=== PATIENT | female | born 1945 | race Hispanic/Latino ===

== ENCOUNTER → 2017-05-12 | Outpatient (CLI) | payer MEDICARE ==
[~2017-05-12] MED LIST: AMLO10TA2 PO; GLYB5TAB8 PO; LEVO100T12 PO; LISI1TAB13 PO; LOVA40TA2 PO
== END | disposition home or self-care (01) ==
LOC: RAH 09:53
PROVIDERS: ATTEND Internal Medicine
DX: Z12.31 Encounter for screening mammogram for malignant neoplasm of breast (principal)
CPT/HCPCS: 77067

== ENCOUNTER → 2017-09-27 | Outpatient (CLI) | payer MEDICARE | END | disposition home or self-care (01) | LOC: SHCH 08:55 | PROVIDERS: ATTEND Internal Medicine Cardiovascular Disease | DX: I35.0 Nonrheumatic aortic (valve) stenosis (principal) | CPT/HCPCS: 93306 ==

== ENCOUNTER → 2017-10-06 | Outpatient (CLI) | payer MEDICARE | END | disposition home or self-care (01) | LOC: SHCH 14:52 | PROVIDERS: ATTEND Internal Medicine Cardiovascular Disease | DX: I73.9 Peripheral vascular disease, unspecified (principal); I70.8 Atherosclerosis of other arteries; R09.89 Other specified symptoms and signs involving the circulatory and respiratory systems | CPT/HCPCS: 93880; 93925 ==

== ENCOUNTER 2018-01-09 07:44 | Day surgery (SDC) | payer MEDICARE ==
[2018-01-04 12:12] VITALS: BP 179/72
[2018-01-04 12:36] LABS: APPEARANCE,URINE Turbid (CLEAR); BASOPHILS % (AUTO) 0.9 % (0.0-5.0); BILIRUBIN,URINE Negative (NEGATIVE); COLOR,URINE Yellow (YELLOW); GLUCOSE, URINE (UA) Negative (NEGATIVE); HEMATOCRIT 32.5 % (36-48); KETONES,URINE Negative (NEGATIVE); LEUKOCYTE ESTERASE ,URINE Large (NEGATIVE); LYMPHOCYTES % (AUTO) 29.4 % (21.0-51.0); MEAN CORPUSCULAR HEMOGLOBIN 30.4 pg (27.0-33.0); MEAN CORPUSCULAR HGB CONC 33.9 g/dL (32.0-36.0); MEAN CORPUSCULAR VOLUME 89.6 fL (79-99); MONOCYTES % (AUTO) 6.3 % (3.0-13.0); NEUTROPHILS % (AUTO) 60.4 % (40.0-77.0); NITRATE,URINE Negative (NEGATIVE); OCCULT BLOOD,URINE Nonhemolyzed Trace (NEGATIVE); PLATELET COUNT (AUTO) 250 K/uL (130-400); PROTEIN,URINE Negative (NEGATIVE); RED BLOOD CELL COUNT(AUTO) 3.63 MIL/uL (4.00-5.50); RED CELL DISTRIBUTION WIDTH 13.8 % (11.0-15.5); UROBILINOGEN,URINE 0.2 mg/dL (0.2-1.0); WHITE BLOOD COUNT (AUTO) 7.5 K/uL (4.8-10.8)
[2018-01-04 12:43] LABS: CREATININE 1.2 mg/dL (0.5-1.5); POTASSIUM 4.3 mmol/L (3.5-5.1)
[2018-01-04 12:46] LABS: INR 0.95 (0.85-1.15); PARTIAL THROMBOPLASTIN TIME 28.1 SEC (26.3-35.5)
[2018-01-04 13:30] LABS: BACTERIA,URINE Moderate /HPF (None Seen); SQUAMOUS EPITHELIAL CELL,UR Moderate /HPF (0-2); WBC,URINE TNTC /HPF (0-1)
[~2018-01-09] VITALS: Ht 157.5 cm; Wt 90.4 kg
[2018-01-09] VITALS (10 sets, daily range): BP systolic 128–176; BP diastolic 62–76
[~2018-01-09 07:44] MED LIST changes: -AMLO10TA2 PO; +AMLO10TA6 PO; +ATOR40TA69 PO; -LISI1TAB13 PO; +LOSA100T20 PO; -LOVA40TA2 PO
[2018-01-09] MEDS ORDERED: SODIUM CHLORIDE 0.9% 1000ML 1,000 ML IV ONE ×2 (07:57→08:38)
[2018-01-09] MEDS ORDERED: SODIUM BICARB 50MEQ 50ML VIAL ONE (10:19)
[2018-01-09] MEDS ORDERED: IOHEXOL-350 50ML VIAL IV ONE ×2 (10:19)
[2018-01-09] MEDS ORDERED: NITROGLYCERIN 5 MG/ML 10 ML VIAL IV ONE (10:19)
[2018-01-09] MEDS ORDERED: LIDOCAINE HCL-MPF 2% 5ML VIAL ONE (10:19)
[2018-01-09] MEDS ORDERED: IOHEXOL 350 MG/ML 100ML INFUS..BTL IV ONE ×2 (10:19)
[2018-01-09] MEDS ORDERED: MEPERIDINE-PF 25 MG/ML SYG ONE (10:50)
[2018-01-09] MEDS ORDERED: MIDAZOLAM HCL 1 MG/ML 2ML VIAL ONE (10:50)
[2018-01-09] MEDS ORDERED: DEXTROSE 50%-WATER 50 ML DISP.SYRIN IV PRN (11:45)
[2018-01-09] MEDS ORDERED: GLUCAGON 1MG KIT 1 MG ML IM PRN (11:45)
[2018-01-09] MEDS ORDERED: SODIUM CHLORIDE 0.9% 1000ML 1,000 ML IV SCH (11:45)
[2018-01-09] MEDS ORDERED: ACETAMINOPHEN-CODEINE 300/30MG TAB PO PRN (11:45)
[2018-01-09] MEDS ORDERED: INSULIN HUMULIN R 100 UNIT/ML 3ML SQ SCH (16:30)
== END 2018-01-09 16:10 | disposition home or self-care (01) ==
LOC: SUH 07:44 → DAH 07:44 → SUH 16:10
PROVIDERS: ATTEND Internal Medicine Cardiovascular Disease
DX: I25.10 Atherosclerotic heart disease of native coronary artery without angina pectoris (principal); I35.0 Nonrheumatic aortic (valve) stenosis; I10 Essential (primary) hypertension; E03.9 Hypothyroidism, unspecified; E66.9 Obesity, unspecified; Z79.899 Other long term (current) drug therapy; Z79.84 Long term (current) use of oral hypoglycemic drugs; Z98.890 Other specified postprocedural states; Z82.49 Family history of ischemic heart disease and other diseases of the circulatory system; Z83.3 Family history of diabetes mellitus; Z80.9 Family history of malignant neoplasm, unspecified; Z90.49 Acquired absence of other specified parts of digestive tract; Z68.32 Body mass index [BMI] 32.0-32.9, adult; Z79.01 Long term (current) use of anticoagulants
CPT/HCPCS: 36415; 71045; 80048; 81001; 82948 ×2; 85025; 85610; 85730; 93005; 93460; A4606; C1760; C1769; C1893; C1894; J1644; J2175; J2250; J3490 ×3; J7030 ×2; Q9965; Q9967 ×2; 99156; 99157

== ENCOUNTER → 2019-06-05 | Outpatient (CLI) | payer MEDICARE, OTHER ==
[~2019-06-05] MED LIST changes: -AMLO10TA6 PO; +AMLO10TA7 PO; -LOSA100T20 PO; +LOSA100T58 PO
== END | disposition home or self-care (01) ==
LOC: SHCH 11:25
PROVIDERS: ATTEND Internal Medicine Cardiovascular Disease
DX: I08.0 Rheumatic disorders of both mitral and aortic valves (principal)
CPT/HCPCS: 93306; 93356

== ENCOUNTER 2020-06-06 20:41 | Inpatient (IN) | payer OTHER ==
[~2020-06-06] VITALS: Ht 152.4 cm; Wt 94.4 kg
[~2020-06-06 20:41] MED LIST changes: +AMLO-258 PO; -AMLO10TA7 PO
[2020-06-06] MEDS ORDERED: 0.9% NACL 500ML IV.SOLN 500 ML IV ONE (21:04)
[2020-06-06] MEDS ORDERED: ONDANSETRON 4MG INJ ONE ×2 (21:04→22:28)
[2020-06-06] MEDS ORDERED: 0.9%NACL 1000ML 1,000 ML IV ONE (21:10)
[2020-06-06 21:11] LABS: BASOPHILS % (AUTO) 0.4 % (0.0-5.0); HEMATOCRIT 32.4 % (36-48); LYMPHOCYTES % (AUTO) 18.7 % (21.0-51.0); MEAN CORPUSCULAR HEMOGLOBIN 28.9 pg (27.0-33.0); MEAN CORPUSCULAR HGB CONC 32.4 g/dL (32.0-36.0); MEAN CORPUSCULAR VOLUME 89.3 fL (79-99); MONOCYTES % (AUTO) 4.3 % (3.0-13.0); NEUTROPHILS % (AUTO) 74.1 % (40.0-77.0); PLATELET COUNT (AUTO) 243 K/uL (130-400); RED BLOOD CELL COUNT(AUTO) 3.63 MIL/uL (4.00-5.50); RED CELL DISTRIBUTION WIDTH 12.8 % (11.0-15.5); WHITE BLOOD COUNT (AUTO) 13.9 K/uL (4.8-10.8)
[2020-06-06 21:24] LABS: APPEARANCE,URINE Clear (CLEAR); BILIRUBIN,URINE Negative (NEGATIVE); COLOR,URINE Yellow (YELLOW); GLUCOSE, URINE (UA) Negative (NEGATIVE); KETONES,URINE Negative (NEGATIVE); LEUKOCYTE ESTERASE ,URINE Trace (NEGATIVE); NITRATE,URINE Negative (NEGATIVE); OCCULT BLOOD,URINE Small (NEGATIVE); PH,URINE 6.5 (5.0-8.0); PROTEIN,URINE POS 1+ mg/dL (NEGATIVE); UROBILINOGEN,URINE 0.2 mg/dL (0.2-1.0)
[2020-06-06 21:27] LABS: INR 0.96 (0.85-1.15); PROTHROMBIN TIME 10.5 SEC (9.6-11.6)
[2020-06-06 21:28] LABS: PARTIAL THROMBOPLASTIN TIME 23.5 SEC (26.3-35.5)
[2020-06-06 21:51] LABS: CREATININE 1.1 mg/dL (0.5-1.5); POTASSIUM 4.1 mmol/L (3.5-5.1)
[2020-06-06 21:56] LABS: BILIRUBIN,TOTAL 0.5 mg/dL (0.2-1.0); TOTAL PROTEIN, SERUM 7.9 g/dL (6.0-8.3)
[2020-06-06 21:59] LABS: BACTERIA,URINE Moderate /HPF (None Seen); MUCUS,URINE Few LPF (None Seen); SQUAMOUS EPITHELIAL CELL,UR 0-2 /HPF (0-2)
[2020-06-06] MEDS ORDERED: MORPHINE 4 MG SYG ONE (22:28)
[2020-06-07] VITALS (14 sets, daily range): BP systolic 82–179; BP diastolic 40–74
[2020-06-07] MEDS ORDERED: CEFTRIAXONE 1G VIAL ONE (00:05)
[2020-06-07 00:30] LABS: CRP QUANTITATIVE 4.6 mg/L (0.00-9.0); MAGNESIUM 1.4 mg/dL (1.80-2.40); PHOSPHORUS 3.7 mg/dL (2.5-4.9); THYROID STIMULATING HORMONE 0.47 uIU/mL (0.36-3.74)
[2020-06-07] MEDS ORDERED: AMLODIPINE 5 MG TAB ONE (08:30)
[2020-06-07] MEDS ORDERED: LOSARTAN 50 MG TABLET ONE (08:30)
[2020-06-07] MEDS ORDERED: FAMOTIDINE 20MG VIAL IV ONE (08:30)
[2020-06-07] MEDS: FAMOTIDINE 20MG VIAL IV SCH ×2 (09:00→21:00)
[2020-06-07] MEDS: LOSARTAN 100 MG TABLET PO SCH (09:00)
[2020-06-07] MEDS: AMLODIPINE 5 MG TAB PO SCH (09:00)
[2020-06-07] MEDS ORDERED: BRIM5DRO OU (10:30)
[2020-06-07] MEDS ORDERED: LATA2.5D14 OU (10:30)
[2020-06-07] MEDS ORDERED: ONDANSETRON 4MG INJ IVP PRN (10:45)
[2020-06-07] MEDS ORDERED: MORPHINE 2 MG SYG IVP PRN (10:45)
[2020-06-07] MEDS: HEPARIN 5,000 UNIT VIAL SQ SCH ×2 (10:52→21:00)
[2020-06-07] MEDS ORDERED: MAGNESIUM 2GM PREMIX 50ML 50 ML IV SCH (16:45)
[2020-06-07] MEDS ORDERED: 0.9%NACL 1000ML 1,000 ML IV ONE (20:03)
[2020-06-07] MEDS ORDERED: CEFAZOLIN SODIUM 1 GM VIAL ONE (20:04)
[2020-06-07] MEDS ORDERED: KETOROLAC 30MG VIAL (30MG/ML) ONE (20:10)
[2020-06-07] MEDS ORDERED: BUPIVACAINE/PF 0.5% 10ML VIAL ONE (20:12)
[2020-06-07] MEDS ORDERED: LIDOCAINE PF 100MG/5ML (2%) SYRINGE 5ML ONE (20:14)
[2020-06-07] MEDS ORDERED: FENTANYL CITRATE PF 50 MCG/1 ML 2ML VIAL ONE (20:14)
[2020-06-07] MEDS ORDERED: PROPOFOL 10 MG/ML 20ML VIAL IV ONE (20:14)
[2020-06-07] MEDS ORDERED: SUCCINYLCHOLINE CHLORIDE 20 MG/ML 10 ML VIAL ONE (20:14)
[2020-06-07] MEDS ORDERED: ROCURONIUM 10MG/1ML SYR 10 MG/ML ML ONE (20:39)
[2020-06-07] MEDS ORDERED: EPHEDRINE SULFATE 50 MG/ML AMPULE ONE (20:49)
[2020-06-07] MEDS ORDERED: GLYCOPYRROLATE 1 MG/5 ML SYRINGE ONE (21:46)
[2020-06-07] MEDS ORDERED: ONDANSETRON 4MG INJ ONE (21:47)
[2020-06-07] MEDS ORDERED: NEOSTIGMINE 5MG/5ML SYR IV ONE (21:47)
[2020-06-08] VITALS (18 sets, daily range): BP systolic 94–134; BP diastolic 47–63
[2020-06-08 04:25] LABS: HEMATOCRIT 24.3 % (36-48); MEAN CORPUSCULAR HEMOGLOBIN 29.2 pg (27.0-33.0); MEAN CORPUSCULAR HGB CONC 31.7 g/dL (32.0-36.0); RED BLOOD CELL COUNT(AUTO) 2.64 MIL/uL (4.00-5.50); RED CELL DISTRIBUTION WIDTH 13.1 % (11.0-15.5); WHITE BLOOD COUNT (AUTO) 14.9 K/uL (4.8-10.8)
[2020-06-08] MEDS ORDERED: OXYCODONE/ACETAMIN 5/325MG TAB PO PRN (04:30)
[2020-06-08] MEDS ORDERED: KETOROLAC 15MG/ML VIAL (15MG/ML) IV PRN (04:30)
[2020-06-08 04:37] LABS: CREATININE 1.5 mg/dL (0.5-1.5); MAGNESIUM 1.7 mg/dL (1.80-2.40); POTASSIUM 4.3 mmol/L (3.5-5.1)
[2020-06-08] MEDS: CEFTRIAXONE 1G VIAL IV SCH ×2 (07:31→23:01)
[2020-06-08] MEDS: LACTATED RINGERS 1000ML 1,000 ML IV SCH ×3 (07:31→23:02)
[2020-06-08] MEDS: CEFAZOLIN SODIUM 1 GM VIAL IVP SCH ×3 (07:31→23:00)
[2020-06-08] MEDS: LOSARTAN 100 MG TABLET PO SCH (08:02)
[2020-06-08] MEDS: OXYCODONE/ACETAMIN 5/325MG TAB PO PRN (08:02)
[2020-06-08] MEDS: AMLODIPINE 5 MG TAB PO SCH (08:03)
[2020-06-08] MEDS: APIXABAN 2.5 MG TABLET PO SCH ×2 (08:03→23:02)
[2020-06-08] MEDS: DOCUSATE SODIUM 100 MG CAP PO SCH ×2 (08:03→23:02)
[2020-06-08] MEDS: FAMOTIDINE 20MG VIAL IV SCH ×2 (08:04→23:02)
[2020-06-08] MEDS: HEPARIN 5,000 UNIT VIAL SQ SCH ×2 (09:00→23:18)
[2020-06-08] MEDS ORDERED: INSULIN HUMULIN R 100 UNIT/ML 3ML SQ SCH (16:30)
[2020-06-08] MEDS: INSULIN HUMULIN R 100 UNIT/ML 3ML SQ SCH (21:00)
[2020-06-09] VITALS (9 sets, daily range): BP systolic 101–155; BP diastolic 39–72
[2020-06-09] MEDS: CEFAZOLIN SODIUM 1 GM VIAL IVP SCH ×3 (04:20→20:38)
[2020-06-09 05:39] LABS: MEAN CORPUSCULAR HEMOGLOBIN 29.4 pg (27.0-33.0); MEAN CORPUSCULAR HGB CONC 32.3 g/dL (32.0-36.0); MEAN CORPUSCULAR VOLUME 91.2 fL (79-99); PLATELET COUNT (AUTO) 149 K/uL (130-400); RED BLOOD CELL COUNT(AUTO) 2.04 MIL/uL (4.00-5.50); RED CELL DISTRIBUTION WIDTH 13.2 % (11.0-15.5); WHITE BLOOD COUNT (AUTO) 8.6 K/uL (4.8-10.8)
[2020-06-09 06:13] LABS: ALBUMIN 2.5 g/dL (3.5-5.0); BILIRUBIN,TOTAL 0.4 mg/dL (0.2-1.0); CREATININE 2.3 mg/dL (0.5-1.5); POTASSIUM 3.9 mmol/L (3.5-5.1); TOTAL PROTEIN, SERUM 5.7 g/dL (6.0-8.3)
[2020-06-09 07:04] LABS: HEMATOCRIT 18.6 % (36-48)
[2020-06-09] MEDS: INSULIN HUMULIN R 100 UNIT/ML 3ML SQ SCH ×4 (07:30→21:46)
[2020-06-09 08:14] LABS: MAGNESIUM 1.9 mg/dL (1.80-2.40)
[2020-06-09] MEDS: DOCUSATE SODIUM 100 MG CAP PO SCH ×2 (08:25→20:39)
[2020-06-09] MEDS: FAMOTIDINE 20MG VIAL IV SCH ×2 (08:26→20:39)
[2020-06-09] MEDS: LOSARTAN 100 MG TABLET PO SCH (08:26)
[2020-06-09] MEDS: AMLODIPINE 5 MG TAB PO SCH (08:26)
[2020-06-09 08:30] LABS: HEMATOCRIT 18.5 % (36-48)
[2020-06-09] MEDS: OXYCODONE/ACETAMIN 5/325MG TAB PO PRN (08:36)
[2020-06-09] MEDS: LACTATED RINGERS 1000ML 1,000 ML IV SCH ×2 (10:30→20:30)
[2020-06-09] MEDS: APIXABAN 2.5 MG TABLET PO SCH ×2 (13:30→20:46)
[2020-06-09 20:09] LABS: BASOPHILS % (AUTO) 0.5 % (0.0-5.0); EOSINOPHILS % (AUTO) 2.1 % (0.0-8.0); LYMPHOCYTES % (AUTO) 11.1 % (21.0-51.0); MEAN CORPUSCULAR HEMOGLOBIN 29.8 pg (27.0-33.0); MEAN CORPUSCULAR VOLUME 90.2 fL (79-99); MONOCYTES % (AUTO) 6.5 % (3.0-13.0); NEUTROPHILS % (AUTO) 79.5 % (40.0-77.0); PLATELET COUNT (AUTO) 145 K/uL (130-400); RED BLOOD CELL COUNT(AUTO) 2.25 MIL/uL (4.00-5.50); RED CELL DISTRIBUTION WIDTH 12.7 % (11.0-15.5); WHITE BLOOD COUNT (AUTO) 7.7 K/uL (4.8-10.8)
[2020-06-09 20:15] LABS: HEMATOCRIT 20.3 % (36-48)
[2020-06-09] MEDS: CEFTRIAXONE 1G VIAL IV SCH (23:53)
[2020-06-10] VITALS (7 sets, daily range): BP systolic 117–167; BP diastolic 58–75
[2020-06-10] MEDS: OXYCODONE/ACETAMIN 5/325MG TAB PO PRN (00:23)
[2020-06-10] MEDS: CEFAZOLIN SODIUM 1 GM VIAL IVP SCH ×2 (04:22→12:41)
[2020-06-10] MEDS: LACTATED RINGERS 1000ML 1,000 ML IV SCH ×3 (04:25→16:36)
[2020-06-10 06:09] LABS: HEMATOCRIT 21.9 % (36-48); MEAN CORPUSCULAR HEMOGLOBIN 29.6 pg (27.0-33.0); MEAN CORPUSCULAR HGB CONC 33.3 g/dL (32.0-36.0); MEAN CORPUSCULAR VOLUME 88.7 fL (79-99); RED BLOOD CELL COUNT(AUTO) 2.47 MIL/uL (4.00-5.50); WHITE BLOOD COUNT (AUTO) 7.4 K/uL (4.8-10.8)
[2020-06-10 06:29] LABS: BILIRUBIN,TOTAL 0.5 mg/dL (0.2-1.0); CREATININE 1.5 mg/dL (0.5-1.5); POTASSIUM 3.8 mmol/L (3.5-5.1); TOTAL PROTEIN, SERUM 5.3 g/dL (6.0-8.3)
[2020-06-10] MEDS: INSULIN HUMULIN R 100 UNIT/ML 3ML SQ SCH ×4 (06:42→20:33)
[2020-06-10] MEDS: FAMOTIDINE 20MG VIAL IV SCH ×2 (09:58→20:33)
[2020-06-10] MEDS: APIXABAN 2.5 MG TABLET PO SCH ×2 (09:58→20:33)
[2020-06-10] MEDS: AMLODIPINE 5 MG TAB PO SCH (09:59)
[2020-06-10] MEDS: DOCUSATE SODIUM 100 MG CAP PO SCH ×2 (09:59→20:33)
[2020-06-10] MEDS: LOSARTAN 100 MG TABLET PO SCH (09:59)
[2020-06-10] MEDS ORDERED: ACETAMINOPHEN 325 MG TAB PO SCH (10:30)
[2020-06-10] MEDS ORDERED: PHARMACY COMMUNICATION MISC SCH (17:00)
[2020-06-10] MEDS: MEROPENEM 500 MG VIAL IVP SCH ×2 (17:23→23:40)
[2020-06-11] MEDS: OXYCODONE/ACETAMIN 5/325MG TAB PO PRN (01:21)
[2020-06-11] MEDS: LACTATED RINGERS 1000ML 1,000 ML IV SCH ×3 (01:52→21:54)
[2020-06-11 04:02] VITALS: BP 114/55
[2020-06-11 05:21] LABS: MEAN CORPUSCULAR HEMOGLOBIN 29.7 pg (27.0-33.0); MEAN CORPUSCULAR HGB CONC 33.3 g/dL (32.0-36.0); RED BLOOD CELL COUNT(AUTO) 2.36 MIL/uL (4.00-5.50); RED CELL DISTRIBUTION WIDTH 13.2 % (11.0-15.5); WHITE BLOOD COUNT (AUTO) 7.7 K/uL (4.8-10.8)
[2020-06-11 05:25] LABS: ALBUMIN 1.9 g/dL (3.5-5.0); BILIRUBIN,TOTAL 0.8 mg/dL (0.2-1.0); CREATININE 1.1 mg/dL (0.5-1.5); TOTAL PROTEIN, SERUM 5.3 g/dL (6.0-8.3)
[2020-06-11] MEDS: INSULIN HUMULIN R 100 UNIT/ML 3ML SQ SCH ×4 (05:53→20:52)
[2020-06-11 07:00] VITALS: BP 131/54
[2020-06-11] MEDS: MEROPENEM 500 MG VIAL IVP SCH ×3 (08:44→23:45)
[2020-06-11] MEDS ORDERED: LACTULOSE 20 GM/30 ML UDCUP PO SCH (09:15)
[2020-06-11] MEDS: LACTULOSE 20 GM/30 ML UDCUP PO SCH ×2 (10:15→15:00)
[2020-06-11] MEDS ORDERED: LACTULOSE 20 GM/30 ML UDCUP ONE (10:22)
[2020-06-11] MEDS: APIXABAN 2.5 MG TABLET PO SCH ×2 (10:27→20:43)
[2020-06-11] MEDS: DOCUSATE SODIUM 100 MG CAP PO SCH ×2 (10:28→20:43)
[2020-06-11] MEDS: LOSARTAN 100 MG TABLET PO SCH (10:28)
[2020-06-11] MEDS: AMLODIPINE 5 MG TAB PO SCH (10:28)
[2020-06-11] MEDS: FAMOTIDINE 20MG TAB PO SCH ×2 (10:28→20:43)
[2020-06-11 11:30] VITALS: BP 133/49
[2020-06-11] MEDS: OXYBUTYNIN CHLORIDE 5 MG TABLET PO SCH ×2 (12:18→20:43)
[2020-06-11] MEDS: FERROUS SULFATE 325 MG TABLET.DR PO SCH (12:18)
[2020-06-11] MEDS ORDERED: KETOROLAC 30MG VIAL (30MG/ML) ONE (12:32)
[2020-06-11] MEDS ORDERED: KETOROLAC 30MG VIAL (30MG/ML) IV PRN (12:45)
[2020-06-11 13:12] LABS: HEMATOCRIT 24.7 % (36-48)
[2020-06-11 15:30] VITALS: BP 161/67
[2020-06-11] MEDS ORDERED: LACTULOSE 20 GM/30 ML UDCUP PO PRN (18:45)
[2020-06-11 20:00] VITALS: BP 151/81
[2020-06-11 23:59] VITALS: BP 134/60
[2020-06-12 04:00] VITALS: BP 134/68
[2020-06-12 05:36] LABS: ALBUMIN 1.9 g/dL (3.5-5.0); BILIRUBIN,TOTAL 1.1 mg/dL (0.2-1.0); CREATININE 0.9 mg/dL (0.5-1.5); POTASSIUM 3.8 mmol/L (3.5-5.1); TOTAL PROTEIN, SERUM 5.2 g/dL (6.0-8.3)
[2020-06-12] MEDS: LACTATED RINGERS 1000ML 1,000 ML IV SCH (06:06)
[2020-06-12] MEDS: INSULIN HUMULIN R 100 UNIT/ML 3ML SQ SCH ×3 (06:32→16:30)
[2020-06-12 08:00] VITALS: BP 147/60
[2020-06-12] MEDS: DOCUSATE SODIUM 100 MG CAP PO SCH (09:00)
[2020-06-12] MEDS: MEROPENEM 500 MG VIAL IVP SCH (09:13)
[2020-06-12] MEDS: LOSARTAN 100 MG TABLET PO SCH (09:14)
[2020-06-12] MEDS: APIXABAN 2.5 MG TABLET PO SCH (09:15)
[2020-06-12] MEDS: FERROUS SULFATE 325 MG TABLET.DR PO SCH (09:15)
[2020-06-12] MEDS: AMLODIPINE 5 MG TAB PO SCH (09:15)
[2020-06-12] MEDS: FAMOTIDINE 20MG TAB PO SCH (09:15)
[2020-06-12] MEDS ORDERED: PSYLLIUM SEED 1 EACH PACKET PO SCH (12:00)
[2020-06-12 12:04] VITALS: BP 142/67
[2020-06-12 16:00] VITALS: BP 159/72
== END 2020-06-12 18:45 | DRG 481 ==
LOC: EDH 20:41 → EDHIP 23:53 → 3AH 06-07 09:19 → 3CH 06-07 20:25 → UNDODISIN 06-12 18:45
PROVIDERS: ADMIT Family Medicine; ATTEND Family Medicine
PROC: 0QS706Z Reposition Left Upper Femur with Intramedullary Internal Fixation Device, Open Approach (ICD-10-PCS; principal; 2020-06-07 20:20)
PROC: 30233N1 Transfusion of Nonautologous Red Blood Cells into Peripheral Vein, Percutaneous Approach (ICD-10-PCS; 2020-06-09)
DX: S72.102A Unspecified trochanteric fracture of left femur, initial encounter for closed fracture (principal); N39.0 Urinary tract infection, site not specified; Z68.41 Body mass index [BMI] 40.0-44.9, adult; E46 Unspecified protein-calorie malnutrition; N17.9 Acute kidney failure, unspecified; D62 Acute posthemorrhagic anemia; K59.00 Constipation, unspecified; R33.9 Retention of urine, unspecified; E77.8 Other disorders of glycoprotein metabolism; N99.0 Postprocedural (acute) (chronic) kidney failure; I10 Essential (primary) hypertension; E03.9 Hypothyroidism, unspecified; M71.21 Synovial cyst of popliteal space [Baker], right knee; Z20.822 Contact with and (suspected) exposure to COVID-19; B96.20 Unspecified Escherichia coli [E. coli] as the cause of diseases classified elsewhere; I35.2 Nonrheumatic aortic (valve) stenosis with insufficiency; I25.10 Atherosclerotic heart disease of native coronary artery without angina pectoris; R79.89 Other specified abnormal findings of blood chemistry; E78.5 Hyperlipidemia, unspecified; E66.9 Obesity, unspecified; E83.42 Hypomagnesemia; Z60.2 Problems related to living alone; E11.51 Type 2 diabetes mellitus with diabetic peripheral angiopathy without gangrene; W18.30XA Fall on same level, unspecified, initial encounter; Z95.2 Presence of prosthetic heart valve; Z90.49 Acquired absence of other specified parts of digestive tract; Z83.3 Family history of diabetes mellitus; Z82.49 Family history of ischemic heart disease and other diseases of the circulatory system; Z82.3 Family history of stroke; Z82.5 Family history of asthma and other chronic lower respiratory diseases; Z82.0 Family history of epilepsy and other diseases of the nervous system; Z79.899 Other long term (current) drug therapy; Z79.84 Long term (current) use of oral hypoglycemic drugs; Z98.41 Cataract extraction status, right eye; I25.2 Old myocardial infarction; Y93.89 Activity, other specified; Y92.89 Other specified places as the place of occurrence of the external cause; Y99.8 Other external cause status
CPT/HCPCS: 36415; 36430; 70450; 71045; 73502; 73552; 73562; 74018; 78582; 80048; 80053; 81001; 82948; 83735; 83880; 84100; 84132; 84443; 84484; 85014; 85018; 85025; 85027; 85378; 85610; 85730; 86140; 86850; 86900; 86901; 86922; 86923; 87077; 87088; 87186; 87426; 93005; 93970; 97039; A9540; A9558; G0378; J0330; J0690; J0696; J1644; J1815; J1885; J2001; J2185; J2270; J2405; J2704; J2710; J3010; J3475; J3490; J7030; J7040; J7120; P9016; U0003

== ENCOUNTER → 2021-05-11 | Outpatient (CLI) | payer OTHER ==
[~2021-05-11] MED LIST changes: +BRIM5DRO OU; +LATA2.5D14 OU
== END | disposition home or self-care (01) ==
LOC: SHCH 12:12
PROVIDERS: ATTEND Internal Medicine Cardiovascular Disease
DX: I08.0 Rheumatic disorders of both mitral and aortic valves (principal); I25.10 Atherosclerotic heart disease of native coronary artery without angina pectoris; I11.9 Hypertensive heart disease without heart failure
CPT/HCPCS: 93306

== ENCOUNTER → 2021-12-04 | Emergency (ER) | payer OTHER ==
[~2021-12-04] VITALS: Ht 160 cm; Wt 68.9 kg
[~2021-12-04] MED LIST changes: +HYDR-4153 PO; +NIFEDIPINE 10 MG CAP PO ONE
[2021-12-04 17:25] LABS: BASOPHILS % (AUTO) 0.8 % (0.0-5.0); EOSINOPHILS % (AUTO) 2.9 % (0.0-8.0); HEMATOCRIT 29.7 % (36-48); LYMPHOCYTES % (AUTO) 28.1 % (21.0-51.0); MEAN CORPUSCULAR VOLUME 90.8 fL (79-99); PLATELET COUNT (AUTO) 188 K/uL (130-400); RED BLOOD CELL COUNT(AUTO) 3.27 MIL/uL (4.00-5.50); RED CELL DISTRIBUTION WIDTH 13.9 % (11.0-15.5); WHITE BLOOD COUNT (AUTO) 6.2 K/uL (4.8-10.8)
[2021-12-04 17:35] LABS: CREATININE 1.2 mg/dL (0.5-1.5)
[2021-12-04 17:44] LABS: ALBUMIN 3.6 g/dL (3.5-5.0); TOTAL PROTEIN, SERUM 7.7 g/dL (6.0-8.3)
[2021-12-04 18:37] VITALS: BP 159/67
== END | disposition home or self-care (01) ==
LOC: EDH 17:04
DX: I10 Essential (primary) hypertension (principal); D64.9 Anemia, unspecified; E11.9 Type 2 diabetes mellitus without complications; E78.00 Pure hypercholesterolemia, unspecified; Z79.84 Long term (current) use of oral hypoglycemic drugs; Z90.49 Acquired absence of other specified parts of digestive tract; Z95.2 Presence of prosthetic heart valve; E66.9 Obesity, unspecified; Z68.26 Body mass index [BMI] 26.0-26.9, adult
CPT/HCPCS: 36415; 71045; 80053; 84484; 85025; 93005

== ENCOUNTER → 2022-04-20 | Outpatient (CLI) | payer OTHER, MEDICARE ==
[~2022-04-20] MED LIST changes: +ALEN70TA80 PO; -AMLO-258 PO; +ATOR10 PO; -ATOR40TA69 PO; -BRIM5DRO OU; +BUSP7.5T7 PO; +DOXA1TAB2 PO; +FERR-72 PO; -GLYB5TAB8 PO; -LATA2.5D14 OU; +LIDOCAINE HCL 4% LTA SOL 4 ML VIAL TP ONE; -LOSA100T58 PO; +NIFE-39 PO; -NIFEDIPINE 10 MG CAP PO ONE; +OMEP20CA12 PO; +PANT40TA54 PO; +SERT-439 PO; +VALS320T16 PO
== END | disposition home or self-care (01) ==
LOC: WHH 09:56
PROVIDERS: ATTEND Podiatrist Foot & Ankle Surgery
DX: T25.321A Burn of third degree of right foot, initial encounter (principal); T31.0 Burns involving less than 10% of body surface; E11.51 Type 2 diabetes mellitus with diabetic peripheral angiopathy without gangrene; I10 Essential (primary) hypertension; E03.9 Hypothyroidism, unspecified; E78.5 Hyperlipidemia, unspecified; I25.10 Atherosclerotic heart disease of native coronary artery without angina pectoris; E66.9 Obesity, unspecified; F41.9 Anxiety disorder, unspecified; F32.A Depression, unspecified; M19.90 Unspecified osteoarthritis, unspecified site; M81.0 Age-related osteoporosis without current pathological fracture; Z68.24 Body mass index [BMI] 24.0-24.9, adult; Z79.899 Other long term (current) drug therapy; Z90.49 Acquired absence of other specified parts of digestive tract; X10.2XXA Contact with fats and cooking oils, initial encounter; Y93.89 Activity, other specified; Y92.89 Other specified places as the place of occurrence of the external cause; Y99.8 Other external cause status
CPT/HCPCS: 16025; A4450; 16020

== ENCOUNTER → 2022-05-04 | Outpatient (CLI) | payer OTHER, MEDICARE | END | disposition home or self-care (01) | LOC: WHH 10:46 | PROVIDERS: ATTEND Podiatrist Foot & Ankle Surgery | DX: T25.321D Burn of third degree of right foot, subsequent encounter (principal); T31.0 Burns involving less than 10% of body surface; E11.621 Type 2 diabetes mellitus with foot ulcer; L97.512 Non-pressure chronic ulcer of other part of right foot with fat layer exposed; E11.51 Type 2 diabetes mellitus with diabetic peripheral angiopathy without gangrene; I10 Essential (primary) hypertension; E03.9 Hypothyroidism, unspecified; E78.5 Hyperlipidemia, unspecified; I25.10 Atherosclerotic heart disease of native coronary artery without angina pectoris; E66.9 Obesity, unspecified; F41.9 Anxiety disorder, unspecified; F32.A Depression, unspecified; M19.90 Unspecified osteoarthritis, unspecified site; M81.0 Age-related osteoporosis without current pathological fracture; Z68.24 Body mass index [BMI] 24.0-24.9, adult; Z79.899 Other long term (current) drug therapy; Z90.49 Acquired absence of other specified parts of digestive tract; X10.2XXD Contact with fats and cooking oils, subsequent encounter | CPT/HCPCS: G0463; A6209 ==

== ENCOUNTER → 2022-05-11 | Outpatient (CLI) | payer OTHER, MEDICARE ==
[~2022-05-11] MED LIST changes: -LIDOCAINE HCL 4% LTA SOL 4 ML VIAL TP ONE
== END | disposition home or self-care (01) ==
LOC: WHH 10:42
PROVIDERS: ATTEND Podiatrist Foot & Ankle Surgery
DX: T25.321D Burn of third degree of right foot, subsequent encounter (principal); T31.0 Burns involving less than 10% of body surface; E11.621 Type 2 diabetes mellitus with foot ulcer; L97.512 Non-pressure chronic ulcer of other part of right foot with fat layer exposed; E11.51 Type 2 diabetes mellitus with diabetic peripheral angiopathy without gangrene; I10 Essential (primary) hypertension; E03.9 Hypothyroidism, unspecified; E78.5 Hyperlipidemia, unspecified; I25.10 Atherosclerotic heart disease of native coronary artery without angina pectoris; E66.9 Obesity, unspecified; F41.9 Anxiety disorder, unspecified; F32.A Depression, unspecified; M19.90 Unspecified osteoarthritis, unspecified site; M81.0 Age-related osteoporosis without current pathological fracture; Z68.24 Body mass index [BMI] 24.0-24.9, adult; Z79.899 Other long term (current) drug therapy; Z90.49 Acquired absence of other specified parts of digestive tract; X10.2XXD Contact with fats and cooking oils, subsequent encounter
CPT/HCPCS: G0463; A6209

== ENCOUNTER → 2022-05-25 | Outpatient (CLI) | payer OTHER, MEDICARE ==
[~2022-05-25] MED LIST changes: +LIDOCAINE HCL 4% LTA SOL 4 ML VIAL TP ONE
== END | disposition home or self-care (01) ==
LOC: WHH 11:06
PROVIDERS: ATTEND Podiatrist Foot & Ankle Surgery
DX: T25.321D Burn of third degree of right foot, subsequent encounter (principal); T31.0 Burns involving less than 10% of body surface; E11.621 Type 2 diabetes mellitus with foot ulcer; L97.512 Non-pressure chronic ulcer of other part of right foot with fat layer exposed; E11.51 Type 2 diabetes mellitus with diabetic peripheral angiopathy without gangrene; I10 Essential (primary) hypertension; E03.9 Hypothyroidism, unspecified; E78.5 Hyperlipidemia, unspecified; I25.10 Atherosclerotic heart disease of native coronary artery without angina pectoris; E66.9 Obesity, unspecified; F41.9 Anxiety disorder, unspecified; F32.A Depression, unspecified; M19.90 Unspecified osteoarthritis, unspecified site; M81.0 Age-related osteoporosis without current pathological fracture; Z68.24 Body mass index [BMI] 24.0-24.9, adult; Z79.899 Other long term (current) drug therapy; Z90.49 Acquired absence of other specified parts of digestive tract; X10.2XXD Contact with fats and cooking oils, subsequent encounter
CPT/HCPCS: G0463; A6209

== ENCOUNTER → 2022-06-08 | Outpatient (CLI) | payer OTHER, MEDICARE | END | disposition home or self-care (01) | LOC: WHH 11:03 | PROVIDERS: ATTEND Podiatrist Foot & Ankle Surgery | DX: T25.321D Burn of third degree of right foot, subsequent encounter (principal); T31.0 Burns involving less than 10% of body surface; E11.621 Type 2 diabetes mellitus with foot ulcer; L97.512 Non-pressure chronic ulcer of other part of right foot with fat layer exposed; E11.51 Type 2 diabetes mellitus with diabetic peripheral angiopathy without gangrene; I10 Essential (primary) hypertension; E03.9 Hypothyroidism, unspecified; E78.5 Hyperlipidemia, unspecified; I25.10 Atherosclerotic heart disease of native coronary artery without angina pectoris; E66.9 Obesity, unspecified; F41.9 Anxiety disorder, unspecified; F32.A Depression, unspecified; M19.90 Unspecified osteoarthritis, unspecified site; M81.0 Age-related osteoporosis without current pathological fracture; Z68.24 Body mass index [BMI] 24.0-24.9, adult; Z79.899 Other long term (current) drug therapy; Z90.49 Acquired absence of other specified parts of digestive tract; X10.2XXD Contact with fats and cooking oils, subsequent encounter | CPT/HCPCS: G0463; A6022 ==

== ENCOUNTER → 2022-06-29 | Outpatient (CLI) | payer OTHER, MEDICARE ==
[~2022-06-29] MED LIST changes: -LIDOCAINE HCL 4% LTA SOL 4 ML VIAL TP ONE
== END | disposition home or self-care (01) ==
LOC: WHH 09:49
PROVIDERS: ATTEND Podiatrist Foot & Ankle Surgery
DX: T25.321D Burn of third degree of right foot, subsequent encounter (principal); T31.0 Burns involving less than 10% of body surface; E11.621 Type 2 diabetes mellitus with foot ulcer; L97.512 Non-pressure chronic ulcer of other part of right foot with fat layer exposed; E11.51 Type 2 diabetes mellitus with diabetic peripheral angiopathy without gangrene; I10 Essential (primary) hypertension; E03.9 Hypothyroidism, unspecified; E78.5 Hyperlipidemia, unspecified; I25.10 Atherosclerotic heart disease of native coronary artery without angina pectoris; E66.9 Obesity, unspecified; F41.9 Anxiety disorder, unspecified; F32.A Depression, unspecified; M19.90 Unspecified osteoarthritis, unspecified site; M81.0 Age-related osteoporosis without current pathological fracture; Z68.24 Body mass index [BMI] 24.0-24.9, adult; Z79.899 Other long term (current) drug therapy; Z90.49 Acquired absence of other specified parts of digestive tract; X10.2XXD Contact with fats and cooking oils, subsequent encounter
CPT/HCPCS: G0463; A4649; A4450

== ENCOUNTER → 2022-07-06 | Outpatient (CLI) | payer OTHER, MEDICARE | END | disposition home or self-care (01) | LOC: WHH 09:55 | PROVIDERS: ATTEND Podiatrist Foot & Ankle Surgery | DX: T25.321D Burn of third degree of right foot, subsequent encounter (principal); T31.0 Burns involving less than 10% of body surface; E11.621 Type 2 diabetes mellitus with foot ulcer; L97.512 Non-pressure chronic ulcer of other part of right foot with fat layer exposed; E11.51 Type 2 diabetes mellitus with diabetic peripheral angiopathy without gangrene; I10 Essential (primary) hypertension; E03.9 Hypothyroidism, unspecified; E78.5 Hyperlipidemia, unspecified; I25.10 Atherosclerotic heart disease of native coronary artery without angina pectoris; E66.9 Obesity, unspecified; F41.9 Anxiety disorder, unspecified; F32.A Depression, unspecified; M19.90 Unspecified osteoarthritis, unspecified site; M81.0 Age-related osteoporosis without current pathological fracture; Z68.24 Body mass index [BMI] 24.0-24.9, adult; Z79.899 Other long term (current) drug therapy; Z90.49 Acquired absence of other specified parts of digestive tract; X10.2XXD Contact with fats and cooking oils, subsequent encounter | CPT/HCPCS: 16020; A4649; A4450; 11042 ==

== ENCOUNTER → 2022-07-14 | Outpatient (CLI) | payer OTHER, MEDICARE | END | disposition home or self-care (01) | LOC: SHCH 13:20 | PROVIDERS: ATTEND Internal Medicine Cardiovascular Disease | DX: I08.3 Combined rheumatic disorders of mitral, aortic and tricuspid valves (principal); I11.9 Hypertensive heart disease without heart failure | CPT/HCPCS: 93308 ==

== ENCOUNTER → 2022-07-20 | Outpatient (CLI) | payer OTHER, MEDICARE | END | disposition home or self-care (01) | LOC: WHH 09:24 | PROVIDERS: ATTEND Podiatrist Foot & Ankle Surgery | DX: T25.321D Burn of third degree of right foot, subsequent encounter (principal); T31.0 Burns involving less than 10% of body surface; E11.621 Type 2 diabetes mellitus with foot ulcer; L97.512 Non-pressure chronic ulcer of other part of right foot with fat layer exposed; E11.51 Type 2 diabetes mellitus with diabetic peripheral angiopathy without gangrene; I10 Essential (primary) hypertension; E03.9 Hypothyroidism, unspecified; E78.5 Hyperlipidemia, unspecified; I25.10 Atherosclerotic heart disease of native coronary artery without angina pectoris; E66.9 Obesity, unspecified; F41.9 Anxiety disorder, unspecified; F32.A Depression, unspecified; M19.90 Unspecified osteoarthritis, unspecified site; M81.0 Age-related osteoporosis without current pathological fracture; Z68.24 Body mass index [BMI] 24.0-24.9, adult; Z79.899 Other long term (current) drug therapy; Z90.49 Acquired absence of other specified parts of digestive tract; X10.2XXD Contact with fats and cooking oils, subsequent encounter | CPT/HCPCS: G0463 ==

== ENCOUNTER → 2023-06-21 | Outpatient (CLI) | payer OTHER, MEDICARE ==
[~2023-06-21] MED LIST changes: -HYDR-4153 PO; +HYDR25TA67 PO
== END | disposition home or self-care (01) ==
LOC: SHCH 13:12
PROVIDERS: ATTEND Internal Medicine Cardiovascular Disease
DX: I08.3 Combined rheumatic disorders of mitral, aortic and tricuspid valves (principal)
CPT/HCPCS: 93306